=== PATIENT | female | born 1990 ===

== ENCOUNTER 2020-10-22 20:59 | Observation (INO) ==
[2020-10-22 22:35] LABS: Bilirubin,Urine Negative (Negative); Blood,Urine Negative (Negative); Clarity,Urine Clear (Clear); Color,Urine Light-Yellow (Yellow); Glucose,Urine (UA) Normal (Normal); Ketones,Urine 10 mg/dL (Negative); Leukocyte Esterase,Urine Negative (Negative); Nitrite,Urine Negative (Negative); Protein,Urine Negative (Neg-Trace); Specific Gravity,Urine 1.026 (1.010-1.025); Urobilinogen,Urine Normal (Normal)
[2020-10-22] MEDS ORDERED: Isovue-370 500 ML BOTTLE IVP ONE (22:38)
[2020-10-22 22:45] LABS: Basophils % 0.3 %; Eosinophils # 0.1 K/mcL (0.0-0.6); Eosinophils % 1.1 %; Hematocrit 40.8 % (35.3-44.9); Hemoglobin 13.9 g/dL (11.5-15.4); Immature Granulocytes % 0.4 % (0-4); Lymphocytes % 26.1 %; Mean Corpuscular HGB Conc 34.1 g/dL (31.6-35.5); Mean Corpuscular Hemoglobin 30.8 pg (28.0-33.3); Mean Corpuscular Volume 90.3 fL (83.0-100.0); Mean Platelet Volume 8.1 fL (9.4-12.4); Monocytes # 0.9 K/mcL (0.0-1.3); Monocytes % 7.9 %; Neutrophils # 7.4 K/mcL (1.6-8.9); Platelet Count 318 K/mcL (140-400); Red Blood Count 4.52 M/mcL (3.82-4.97); Red Cell Distribution Width 12.3 % (11.5-14.5); Segmented Neutrophils % 64.2 %; White Blood Count 11.6 K/mcL (4.3-11.1)
[2020-10-22 22:55] LABS: Alanine Aminotransferase 14 Units/L (7-52); Albumin 4.3 g/dL (3.5-5.7); Albumin/Globulin Ratio 1.3 (1.1-2.2); Alkaline Phosphatase 71 Units/L (34-104); Aspartate Amino Transferase 15 Units/L (13-39); BUN/Creatinine Ratio 22 (6-26); Bilirubin,Indirect 0.2 mg/dL (0.0-1.0); Bilirubin,Total 0.2 mg/dL (0.3-1.0); Blood Urea Nitrogen 17 mg/dL (6-20); Calcium 8.8 mg/dL (8.6-10.3); Carbon Dioxide 22 mEq/L (23-29); Chloride 104 mEq/L (98-107); Globulin 3.3 g/dL (2.4-3.5); Glucose 82 mg/dL (70-105); Lipase 27 Units/L (11-82); Osmolality,Calculated 281 (280-300); Potassium 3.4 mEq/L (3.5-5.1); Sodium 135 mEq/L (136-145); Total Protein 7.6 g/dL (6.4-8.9); eGFR For African Americans > 60 (> 60); eGFR For Non-African Americans > 60 (> 60)
[2020-10-22] MEDS ORDERED: 0.9 % Sodium Chloride 1,000 ML IVC ONE (23:24)
[2020-10-22] MEDS ORDERED: Ketorolac 15 MG/ML VIAL IVP ONE (23:24)
[2020-10-23 02:06] LABS: Chlamydia Trachomatis DNA Ur NOT DETECTED (Not Detect)
[2020-10-23] MEDS ORDERED: *HR* OxyCODONE Immed Rel 5 MG TABLET PO PRN (06:38)
[2020-10-23] MEDS ORDERED: *HR* HYDROcodone/Acet 5/325 mg TABLET PO PRN (06:38)
[2020-10-23] MEDS ORDERED: Ondansetron ODT 4 MG TAB.RAPDIS SL PRN (06:38)
[2020-10-23] MEDS ORDERED: Naloxone 0.4 MG/ML INJ IVP PRN (06:38)
[2020-10-23] MEDS ORDERED: Acetaminophen 325 MG TABLET PO PRN (06:38)
[2020-10-23] MEDS ORDERED: Gadolinium Contrast Agent (WT Based) IV PRN (06:40)
[2020-10-23 11:26] VITALS: BP 112/66; PULSE 79; TEMP 98.2; O2SAT 94
== END 2020-10-23 15:19 | disposition home or self-care (01) ==
LOC: 3BNU 20:59 → EMEROOARM 20:59 → SUATTDRO 10-23 05:02 → 3BNU 10-23 05:42
PROVIDERS: ADMIT Pharmacist; ATTEND Registered Nurse